=== PATIENT | female | born 1990 | race Caucasian/White ===

== ENCOUNTER 2022-06-11 01:49 | Emergency (ER) | payer OTHER ==
[~2022-06-11] VITALS: Ht 154.9 cm; Wt 63.5 kg
[2022-06-11 02:00] VITALS: BP_SYST 144
--- NOTE | 2022-06-11 02:00 | NUR ---
Patient to ER bed 4 to gown for evaluation. Side rails up. Report given to JING BORJAS(REG).
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
[2022-06-11] MEDS ORDERED: cefTRIAXone 1 GM in LIDOCAINE 1%, 20 ML MDV 2.1 ML IM ONE (02:30)
[2022-06-11] MEDS ORDERED: AZITHROMYCIN 250 MG TABLET PO ONE (02:30)
[2022-06-11] MEDS ORDERED: valACYclovir HCL 500 MG TABLET PO ONE (02:30)
[2022-06-11] MEDS ORDERED: cefTRIAXone 1 GM IVPB PREMIX 0 ML IV ONE (03:08)
[2022-06-11] MEDS ORDERED: CEFA250C45 PO (03:21)
[2022-06-11] MEDS ORDERED: VALA10002 PO (03:21)
[2022-06-11] MEDS ORDERED: HYDR-3921 PO (03:21)
[2022-06-11] MEDS ORDERED: ACYCLOVIR 400 MG TABLET PO ONE (03:30)
[2022-06-11] MEDS ORDERED: AZITHROMYCIN 250 MG TABLET ONE (03:49)
[2022-06-11 04:03] LABS: BILIRUBIN,URINE NEGATIVE (NEGATIVE); CLARITY/URINE CLEAR (CLEAR); COLOR,URINE YELLOW (YELLOW); GLUCOSE,URINE NEGATIVE (NEGATIVE); KETONES,URINE NEGATIVE (NEGATIVE); LEUKOCYTE ESTERASE ,URINE NEGATIVE (NEGATIVE); NITRITE, URINE NEGATIVE (NEGATIVE); PH,URINE 5.5 (5.0-8.0); PROTEIN URINE NEGATIVE (NEGATIVE); UROBILINOGEN,URINE 0.2 (0.2-1.0)
[2022-06-11 04:11] LABS: BLOOD, URINE TRACE (NEGATIVE)
--- NOTE | 2022-06-11 04:24 | NUR ---
pt discharge with homecare instructions and rx. pt encouraged to consume lots of fluids. pt also encouraged to complete full round of antibiotics and follow up with primary car MD. pt discharged home ambulatory in stable condition. all questions answered
[2022-06-11 04:40] LABS: BACTERIA,URINE FEW /HPF (None Seen); RBC,URINE 20-50 /HPF (0-3)
[2022-06-11 04:41] LABS: MUCUS,URINE 2+ /LPF (None Seen)
== END 2022-06-11 04:10 | disposition home or self-care (01) ==
LOC: SED 01:49
DX: N72 Inflammatory disease of cervix uteri (principal); N39.0 Urinary tract infection, site not specified; K13.79 Other lesions of oral mucosa; R50.9 Fever, unspecified; Z79.899 Other long term (current) drug therapy
CPT/HCPCS: 99283; 81000; 87086; 36415; 81025; 96372; 87491; J0696; J2001; Q0144

== ENCOUNTER 2023-10-01 19:37 | Emergency (ER) | payer MEDICAID, OTHER ==
[~2023-10-01] VITALS: Ht 157.5 cm; Wt 65.8 kg
[~2023-10-01 19:37] MED LIST: CEFA250C45 PO; HYDR-3921 PO; VALA10002 PO
[2023-10-01 19:59] VITALS: BP_SYST 137; PULSE 105; RESP 20; TEMP 97.7; O2SAT 98
[2023-10-01 22:28] VITALS: BP_SYST 137; PULSE 105; RESP 20; TEMP 97.7; O2SAT 98
== END 2023-10-01 22:30 | disposition home or self-care (01) ==
LOC: SED 19:37
DX: R10.9 Unspecified abdominal pain (principal); Z79.899 Other long term (current) drug therapy
CPT/HCPCS: 99284